=== PATIENT | female | born 1990 | race Caucasian/White ===

== ENCOUNTER 2019-08-21 14:06 | Emergency (ER) | payer OTHER ==
--- NOTE | 2019-08-21 14:12 | ED Physician Documentation ---
Syncope/Near Syncope - HISTORIAN Historian: patient - HPI Stated Complaint: syncope Chief Complaint: Syncope Additional Information: Patient presents to ED via EMS after a syncopal episode today. Patient states she was asleep on the couch when her needed her assistance in the kitchen. She got up off the couch, walked to the kitchen, to go look at her 's sutures. While her was taking the bandage off his suture site she felt light headed. The next thing she remembers was sitting on a chair in the hallway covered in sweat. reports he caught her as she was going down and placed her in the chair. He states she was out of it for about 1-2 minutes before she came around and started talking. Patient states she has had an upper respiratory illness and has been taking tylenol, ibuprofen, dayquil and nightquil. Patient admits she may not be drinking as many fluids as she should. Blood pressure upon presentation 90/48 with positive orthostatics. Witnessed: Yes Witnessed By: family Position at Time of Episode: standing Symptoms Prior to Episode: light-headed Character of Events(s): lost consciousness Symptoms after Event: incontinent of urine Location of Injury: none Associated Symptoms: feels back to normal - ROS CONST: recent illness, cough, other (nasal congestion) EYES/ENT: none GI/: denies: problems urinating MS/SKIN/LYMPH: denies: leg swelling NEURO/PSYCH: denies: confusion - PAST HX Cardiac Disease: none PE Risk Factors: none Surgeries/Procedures: none Allergies/Adverse Reactions: Allergies Allergy/AdvReac Type Severity Reaction Status Date / Time No Known Drug Allergies Allergy Verified 08/21/19 14:22 Home Medications: Ambulatory Orders Medication Instructions Recorded Amoxicillin/Potassium Clav 1 each PO BID #20 tablet 08/21/19 [Augmentin 875-125 Tablet] - SOCIAL HX Smoking History: non-smoker Alcohol Use: none Drug Use: none - FAMILY HX Family History: none - VITAL SIGNS Vital Signs: Vital Signs Temp Pulse Resp BP Pulse Ox 97.6 F 55 L 14 104/55 98 08/21/19 14:07 08/21/19 14:21 08/21/19 14:07 08/21/19 14:21 08/21/19 14:07 - REVIEWED ASSESSMENTS Nursing Assessment Reviewed: Yes Vitals Reviewed: Yes Progress - Progress Progress: 1525 Cardiac lab machine is inoperable at this time. NO cardiac labs were ordered. 1630 Discussed labs, imgaing with patient, and mother. - EKG/XRAY/CT Comments: 1423 Sinus pablo [address] elevation ED Results Lab/Radiology - Lab Results Lab Results: Lab Results 08/21/19 08/21/19 14:23 14:23 WBC 7.40 K/ul K/ul (4.00-12.00) RBC 3.72 M/ul L M/ul (3.90-5.20) Hgb 12.2 g/dL g/dL (11.5-16.0) Hct 35.7 % % (34.5-46.5) MCV 96.0 fl fl (80.0-100.0) MCH 32.9 pg pg (28.0-34.0) MCHC 34.2 g/dL g/dL (30.0-36.0) RDW 11.8 % % (11.3-14.3) Plt Count 224 K/mm3 K/mm3 (130-400) Neut % (Auto) 60.9 % % (39.0-79.0) Lymph % (Auto) 30.6 % % (16.0-50.0) [place] % (Auto) 5.2 % % (0.0-11.0) Eos % (Auto) 2.9 % % (0.0-6.8) Baso % (Auto) 0.4 % % (0.0-1.5) Neut # (Auto) 4.5 # k/uL # k/uL (1.4-7.7) Lymph # (Auto) 2.3 # k/uL # k/uL (0.6-4.0) [place] # (Auto) 0.4 # k/uL # k/uL (0.0-0.9) Eos # (Auto) 0.2 # k/uL # k/uL (0.0-0.6) Baso # (Auto) 0.0 # k/uL # k/uL (0.0-0.5) Sodium 144 mmol/L mmol/L (137-145) Potassium 3.8 mmol/L mmol/L (3.5-5.1) Chloride 107 mmol/L mmol/L (98-107) Carbon Dioxide 27 mmol/L mmol/L (22-30) Anion Gap 13.8 BUN 8 mg/dL mg/dL (7-17) Creatinine 0.50 mg/dL L mg/dL (0.52-1.04) Estimated Creat Clear 157 Est GFR ( Amer) > 60 (60 - ) Est GFR (Non-Af Amer) > 60 (60 - ) Glucose 86 mg/dL mg/dL (74-106) Calcium 9.2 mg/dL mg/dL (8.4-10.2) Total Bilirubin 0.4 mg/dL mg/dL (0.2-1.3) AST 28 U/L U/L (15-46) ALT 13 U/L U/L (13-69) Alkaline Phosphatase 42 U/L U/L (38-126) Total Protein 7.7 g/dL g/dL (6.3-8.2) Albumin 4.1 g/dL g/dL (3.5-5.0) - Radiology Radiology Impressions: Report Submission Date: Aug 21, 2019 3:25:44 PM CDT Patient Study Name: MALIK FIGUEROA Date: Aug 21, 2019 2:47:14 PM CDT Modality Type: DX Gender: F Description: CHEST 1VIEW : 86 Institution: [facility] Physician: LISSETTE CORNELIUS One-view chest Clinical history: Syncopal episode. Findings: Examination of the chest in single portable AP view demonstrates lungs to be clear. Cardiovascular and mediastinal silhouettes within normal limits. Monitor leads superimpose the chest. Impression: 1. Negative chest. Electronically signed on Aug 21, 2019 3:25:44 PM CDT by: Robert Acosta Report Submission Date: Aug 21, 2019 4:13:18 PM CDT Patient Study Name: MALIK FIGUEROA Date: Aug 21, 2019 3:40:16 PM CDT Modality Type: CT\SR Gender: F Description: CT BRAIN W/O CONTRAST : 86 Institution: [facility] Physician: LISSETTE CORNLEIUS Exam: CT brain without contrast. History: Syncope. Axial images through the brain are submitted along with sagittal and coronal reformatted images. The brainstem and cerebellum are of normal attenuation. In the supratentorial regions, no acute hemorrhage or mass effect is identified. No extra-axial fluid collections are identified. An air-fluid level in the right maxillary sinus is noted with mucoperiosteal thickening. Mucoperiosteal thickening in the ethmoid sinuses are also noted. No bony abnormality is identified. Impression: Ethmoid and right maxillary sinusitis. No acute intracranial process. Electronically signed on Aug 21, 2019 4:13:18 PM CDT by: Mikey Garcia - Orders Orders: ED Orders Category Date Time Status CHEST 1VIEW [RAD] Stat Exams 08/21/[address] BRAIN W/O CONTRAST Stat Exams 08/21/19 Taken CBC/PLATELET/DIFF Routine Lab 08/21/19 14:23 Completed CMP Routine Lab 08/21/19 14:23 Completed UA W/MICRO IF INDICATED Routine Lab 08/21/19 14:17 Ordered URINE HCG [URINE HCG] Stat Lab 08/21/19 15:14 Ordered 0.9 % Sodium Chloride [Normal Saline] 1,000 ml Med 08/21/19 14:12 Discontinued IV Q1H 0.9 % Sodium Chloride [Normal Saline] 1,000 ml Med 08/21/19 14:49 Discontinued IV Q1H EKG WITH COMPARISON Stat Ther 08/21/19 Ordered Syncope Physical Exam - Physical Exam General Appearance: no acute distress, alert EENT: PERRL Neck/Back: neck supple. No: cerv. lymphadenopathy Respiratory: no resp distress, chest non-tender, breath sounds normal CVS: reg rate & rhythm, heart sounds normal Abdomen: non-tender Skin: warm/dry Extremities: non-tender - Neuro/Psych Higher Functions: alert, oriented x3, mood/affect nml Cranial Nerves: nml as tested Cerebellar: nml as tested Sensorimotor: nml motor response, nml sensory response Discharge Clincal Impression: Vasovagal syncope Ethmoidal sinusitis Qualifiers: Chronicity: acute Recurrence: non-recurrent Qualified Code(s): J01.20 - Acute ethmoidal sinusitis, unspecified Prescriptions: Amoxicillin/Potassium Clav [Augmentin 875-125 Tablet] 1 each PO BID #20 tablet Referrals: Primary Doctor,No [Primary Care Provider] - 2 Days Additional Instructions: 1. Drink plenty of fluids to maintain proper hydration 2. Take antibiotics until gone 3. Follow up with PCP as soon as possible. Discuss further evaluation such as echocardiogram, holter bus driver/monitor, cardiac stress test neurology consult if indicated. 4. Return to ER for new or worsening symptoms Condition: Stable Disposition: 01 HOME, SELF-CARE Decision to Admit: NO Date of Decison to Admit: 08/21/19 Decision Time: 16:18
[2019-08-21] MEDS: 0.9 % SODIUM CHLORIDE 1,000 ML IV ONE ×2 (14:15→15:13)
[2019-08-21 14:30] LABS: BASOPHILS % 0.4 % (0.0-1.5); NEUTROPHILS # 4.5 # k/uL (1.4-7.7)
[2019-08-21 14:42] LABS: eGFR (Non-African) > 60
--- NOTE | 2019-08-21 15:28 | Diagnostic Imaging Report ---
PATIENT MR#: [id number] PATIENT PATIENT NAME: MALIK FIGUEROA DATE OF : 1990 REFERRING PHYSICIAN: Fernanda Wayne EXAM DATE: 08/21/2019 ACCESSION NUMBER: [id number] EXAM DESCRIPTION: CHEST 1VIEW One-view chest Clinical history: Syncopal episode. Findings: Examination of the chest in single portable AP view demonstrates lungs to be clear. Cardi ovascular and mediastinal silhouettes within normal limits. Monitor leads superimpose the chest. Impression: 1. Negative chest. Read by: Dr. Robert Acosta Transcribed by: Transcribed Date: Electronically signed by: Dr. Robert Acosta Date signed: 08/21/2019 3:27:58 PM
[2019-08-21 16:41] VITALS: BP 117/68
--- NOTE | 2019-08-21 16:44 | Diagnostic Imaging Report ---
LISSETTE CORNELIUS [facility] [address] [facility] [address] [place], [place]. [address] Report Submission Date: Aug 21, 2019 4:13:18 PM CDT Patient Study Name: MALIK FIGUEROA Date: Aug 21, 2019 3:40:16 PM CDT Modality Type: CT\SR Gender: F Description: CT BRAIN W/O CONTRAST : 86 Institution: [facility] Physician: LISSETTE CORNELIUS Exam: CT brain without contrast. History: Syncope. Axial images through the brain are submitted along with sagittal and coronal reformatted images. The brainstem and cerebellum are of normal attenuation. In the supratentorial regions, no acute hemorrhage or mass effect is identified. No extra-axial fluid collections are identified. An air-fluid level in the right maxillary sinus is noted with mucoperiosteal thickening. Mucoperiosteal thickening in the ethmoid sinuses are also noted. No bony abnormality is identified. Impression: Ethmoid and right maxillary sinusitis. No acute intracranial process. Electronically signed on Aug 21, 2019 4:13:18 PM CDT by: Mikey SHAFFER
[2019-08-21 17:53] LABS: OCCULT BLOOD,URINE NEGATIVE (NEGATIVE); UROBILINOGEN URINE 0.2 Eu (0.2-1.0)
== END 2019-08-21 16:33 | disposition home or self-care (01) ==
LOC: ED 14:06
DX: R55 Syncope and collapse (principal); J01.20 Acute ethmoidal sinusitis, unspecified
CPT/HCPCS: 70450; 71045; 80053; 81002; 81025; 85025; 96360; 96361; 99284; J7030; 93005